=== PATIENT | female | born 1990 | race American Indian/Alaskan Native ===

== ENCOUNTER 2017-03-20 13:39 | Emergency (ER) | payer OTHER ==
[2017-03-20] MEDS ORDERED: Sodium Chloride 0.9% 1,000 ML IV STA (14:21)
[2017-03-20 14:48] LABS: BASO % 0.6 % (0.0-2.0); EOS % 0.4 % (0.0-4.0); HEMOGLOBIN 12.1 g/dL (12.0-16.0); LYMPH # 1.3 K/uL (1.0-4.3); LYMPH % 21.9 % (20.0-40.0); MEAN CELL VOLUME 101.1 fl (81.0-99.0); MEAN CORPUSCULAR HEMOGLOBIN 34.5 pg (27.0-31.0); MEAN CORPUSCULAR HGB CONC 34.1 g/dL (33.0-37.0); MEAN PLATELET VOLUME 8.2 fl (7.2-11.7); MONO # 0.5 K/uL (0.0-0.8); MONO % 9.2 % (0.0-10.0); NEUT % 67.9 % (50.0-75.0); NRBC % 0.1 % (0.0-0.0); RBC 3.51 Mil/uL (3.80-5.20); WHITE BLOOD COUNT 5.9 K/uL (4.8-10.8)
--- NOTE | 2017-03-20 14:49 | ED PDOC ---
HPI: Abdomen Time Seen by Provider: 03/20/17 14:05 Chief Complaint (Nursing): Abdominal Pain Chief Complaint (Provider): Abdominal Pain History Per: Patient History/Exam Limitations: no limitations Onset/Duration Of Symptoms: Other (x 1 month) Quality Of Discomfort: Sharp Additional Complaint(s): Nadine is a 26 year old female, with a past medical history of HIV, who presents to the emergency department with intermittent, sharp abdominal pain for 1 month. Patient reports last week she felt nauseous and vomited x 1, and had diarrhea yesterday. Patient states her job requires her to travel, but her pain is bad. Patient states she has an appointment with her PMD on March 24, but is concern about driving. PMD: Katerin Jaimes Past Medical History Reviewed: Historical Data, Nursing Documentation, Vital Signs Vital Signs: Last Vital Signs Temp 98.4 F 03/20/17 13:44 Pulse 79 03/20/17 13:44 Resp 16 03/20/17 13:44 BP 102/61 03/20/17 13:44 Pulse Ox 97 03/20/17 18:53 - Medical History PMH: HIV - Family History Family History: States: Unknown Family Hx - Home Medications Home Medications: Ambulatory Orders Medication Instructions Recorded Amoxicillin/Clavulanate Pota 1 tab PO BID #10 tab 11/26/14 [Augmentin 875 mg-125 mg] Ibuprofen [Motrin] 600 mg PO Q8 PRN #21 tab 05/08/16 - Allergies Allergies/Adverse Reactions: Allergies Allergy/AdvReac Type Severity Reaction Status Date / Time COCONUT Allergy ANAPHYLAXIS Uncoded 03/20/17 13:44 Review of Systems ROS Statement: Except As Marked, All Systems Reviewed And Found Negative Gastrointestinal: Positive for: Nausea, Vomiting, Abdominal Pain Physical Exam - Reviewed Nursing Documentation Reviewed: Yes Vital Signs Reviewed: Yes - Physical Exam Appears: Positive for: Well, Non-toxic Head Exam: Positive for: NORMAL INSPECTION Skin: Positive for: Normal Color, Warm Eye Exam: Positive for: Normal appearance ENT: Positive for: Normal ENT Inspection Neck: Positive for: Normal Cardiovascular/Chest: Positive for: Regular Rate, Rhythm Respiratory: Positive for: Normal Breath Sounds. Negative for: Accessory Muscle Use, Respiratory Distress Gastrointestinal/Abdominal: Positive for: Normal Exam, Soft. Negative for: Tenderness Extremity: Positive for: Normal ROM. Negative for: Deformity Neurologic/Psych: Positive for: Alert, Oriented (x 3) - Laboratory Results Result Diagrams: 03/20/17 14:41 03/20/17 14:41 Urine POC: Positive - ECG O2 Sat by Pulse Oximetry: 97 (RA) Pulse Ox Interpretation: Normal Medical Decision Making Medical Decision Making: Time: 14:21 Plan: - CT Abdominal and Pelvis without PO pr IV Contrast - CMP - Lipase - CBC - Sodium Chloride 0.9% 1,000 ml IV 1,000 mls/hr 1533 CT cancelled. (+) urine . helpdesk technician, Alex notified. Time: 15:33 Plan: - Beta- hCG Quantitative - Urine Culture - Urinalysis - OB Transvaginal Ultrasound Time: 18:41 OB Transvaginal Ultrasound FINDINGS: Cardiac activity: Present Rate: 163 BPM Measurements: [place] rump length: 5.21 cm Gestational age based on CRL 11 weeks 6 days Gestational age out of range based on gestational sac measurement 6.22 cm Gestational age derived from LMP: Cannot be ascertained based in the absence of a reliable/ known LMP AMY based on LMP: Cannot be ascertained based in the absence of a reliable/ known LMP AMY based on biometry: 10/03/2017 Gestational concordance documented Yolk sac identified Uterus: Unremarkable. No Cervical abnormalities: Negative examination for cervical dilatation or effacement. Closed cervix measuring 5.23 cm Subchorionic hemorrhage: None ADNEXA: Right: 1.2 x 2.2 x 2.1 cm. Normal Doppler arterial waveform documented. Left: 2.4 x 2.5 x 1.7 cm. Normal Doppler arterial waveform documented Fluid in the cul-de-sac: None IMPRESSION: Eleven weeks 6 days live intrauterine gestation. Scribe Attestation: Documented by Hussein Green, acting as a scribe for Leilani Diallo PA-C Provider Scribe Attestation: All medical record entries made by the Scribe were at my direction and personally dictated by me. I have reviewed the chart and agree that the record accurately reflects my personal performance of the history, physical exam, medical decision making, and the department course for this patient. I have also personally directed, reviewed, and agree with the discharge instructions and disposition. Disposition - Clinical Impression Clinical Impression: Abdominal pain during - Patient ED Disposition Is Patient to be Admitted: No Counseled Patient/Family Regarding: Diagnosis, Need For Followup - Disposition Disposition: Routine/Home Disposition Time: 18:59 Condition: GOOD Instructions: Abdominal Pain in (ED) Forms: [employer] - [employer] (South African)
[2017-03-20 14:58] LABS: ALB/GLOB RATIO 1.4 (1.0-2.1); ALBUMIN 4.2 g/dL (3.5-5.0); ALT/SGPT 42 U/L (9-52); AST/SGOT 29 U/L (14-36); BLOOD UREA NITROGEN 6 mg/dl (7-17); CALCIUM 9.5 mg/dL (8.4-10.2); GFR AFRICAN-AMERICAN > 60; GFR NON-AFRICAN AMERICAN > 60; LIPASE 41 U/L (23-300)
[2017-03-20 15:52] LABS: SQUAMOUS EPITHIAL 5 /hpf (0-5); URINE BACTERIA RARE (<OCC); URINE BILIRUBIN NEGATIVE (NEGATIVE); URINE BLOOD NEGATIVE (NEGATIVE); URINE CLARITY CLOUDY (Clear); URINE COLOR YELLOW (YELLOW); URINE GLUCOSE (UA) NEG (Normal); URINE LEUKOCYTE ESTERASE NEG Leu/uL (Negative); URINE NITRATE NEGATIVE (NEGATIVE); URINE PROTEIN NEGATIVE (NEGATIVE); URINE UROBILINOGEN 0.2-1.0 mg/dL (0.2-1.0)
--- NOTE | 2017-03-20 18:43 | US ---
PROCEDURE: First trimester ultrasound HISTORY: abdominal pain, Duration of symptoms: One month COMPARISON: None available. TECHNIQUE: Standard protocol for this study/examination. FINDINGS: LMP: Unknown Prior examinations from the current : None TECHNIQUE: Real-time 2D imaging, duplex and color Doppler. FINDINGS: Cardiac activity: Present Rate: 163 BPM Measurements: [place] rump length: 5.21 cm Gestational age based on CRL 11 weeks 6 days Gestational age out of range based on gestational sac measurement 6.22 cm Gestational age derived from LMP: Cannot be ascertained based in the absence of a reliable/ known LMP AMY based on LMP: Cannot be ascertained based in the absence of a reliable/ known LMP AMY based on biometry: 10/03/2017 Gestational concordance documented Yolk sac identified Uterus: Unremarkable. No Cervical abnormalities: Negative examination for cervical dilatation or effacement. Closed cervix measuring 5.23 cm Subchorionic hemorrhage: None ADNEXA: Right: 1.2 x 2.2 x 2.1 cm. Normal Doppler arterial waveform documented. Left: 2.4 x 2.5 x 1.7 cm. Normal Doppler arterial waveform documented Fluid in the cul-de-sac: None IMPRESSION: Eleven weeks 6 days live intrauterine gestation.
[2017-03-20 19:13] VITALS: BP 104/78; PULSE 70; RESP 18; TEMP 98.2; O2SAT 99
== END 2017-03-20 19:32 | disposition home or self-care (01) ==
LOC: H.ER 13:39
DX: O26.899 Other specified pregnancy related conditions, unspecified trimester (principal); B20 Human immunodeficiency virus [HIV] disease
CPT/HCPCS: 76817; 80053; 81003; 81025; 83690; 84702; 85025; 87086; 99282; J7040

== ENCOUNTER 2017-06-13 01:03 | Emergency (ER) | payer OTHER ==
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
[2017-06-13 12:06] VITALS: BP 113/84; PULSE 72; RESP 16; TEMP 98.3; O2SAT 98
== END 2017-06-13 02:26 | disposition home or self-care (01) ==
LOC: H.ER 01:03
DX: S09.90XA Unspecified injury of head, initial encounter (principal); V43.52XA Car driver injured in collision with other type car in traffic accident, initial encounter; Y92.410 Unspecified street and highway as the place of occurrence of the external cause

== ENCOUNTER 2017-06-19 16:18 | Emergency (ER) | payer OTHER ==
[2017-06-19 16:31] VITALS: BP 104/67; PULSE 95; RESP 16; TEMP 98; O2SAT 98
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
[2017-06-19 18:15] LABS: BASO % 0.3 % (0.0-2.0); EOS % 0.6 % (0.0-4.0); HEMOGLOBIN 13.6 g/dL (12.0-16.0); LYMPH # 2.4 K/uL (1.0-4.3); LYMPH % 38.6 % (20.0-40.0); MEAN CELL VOLUME 100.3 fl (81.0-99.0); MEAN CORPUSCULAR HEMOGLOBIN 33.6 pg (27.0-31.0); MEAN CORPUSCULAR HGB CONC 33.5 g/dL (33.0-37.0); MEAN PLATELET VOLUME 8.4 fl (7.2-11.7); MONO # 0.6 K/uL (0.0-0.8); MONO % 9.6 % (0.0-10.0); NEUT # 3.2 K/uL (1.8-7.0); NEUT % 50.9 % (50.0-75.0); NRBC % 0.1 % (0.0-0.0); RBC 4.03 Mil/uL (3.80-5.20); RED CELL DISTRIBUTION WIDTH 13.5 % (11.5-14.5); WHITE BLOOD COUNT 6.2 K/uL (4.8-10.8)
[2017-06-19 18:27] LABS: BLOOD UREA NITROGEN 12 mg/dl (7-17); GFR AFRICAN-AMERICAN > 60; GFR NON-AFRICAN AMERICAN > 60
--- NOTE | 2017-06-20 14:24 | MRI ---
PROCEDURE: MRI of the brain and pituitary gland dated 06/19/2017. HISTORY: Assess pituitary gland COMPARISON: Comparison made with prior CT scan brain earlier same day. TECHNIQUE: Multiplanar, multisequence MR images of the brain were obtained with and without intravenous contrast enhancement. 7 cc of Omniscan injected for this examination. FINDINGS: HEMORRHAGE: No acute parenchymal, subarachnoid or extra-axial hemorrhage. DWI: No evidence of an acute or early subacute infarction seen on diffusion imaging. . BRAIN PARENCHYMA: There are no focal areas of abnormal signal or contrast enhancement seen within the substance of the brain. Specifically the pituitary gland is normal in appearance. . No evidence of unusual meningeal enhancement. ENHANCEMENT: No abnormal intracranial enhancement as above. VENTRICLES: No obstructive hydrocephalus. CRANIUM: There are no calvarial abnormalities. ORBITS: Orbits and contents unremarkable. PARANASAL SINUSES/MASTOIDS: Clear VASCULAR SYSTEM: Visualized major vascular flow voids at skull base patent. OTHER FINDINGS: None . IMPRESSION: No acute intracranial hemorrhage or infarction. No pituitary abnormalities.
== END 2017-06-19 19:42 | disposition home or self-care (01) ==
LOC: H.ER 16:18
DX: S09.90XA Unspecified injury of head, initial encounter (principal)

== ENCOUNTER 2017-12-30 16:09 | Emergency (ER) | payer OTHER ==
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
[2017-12-30 17:21] VITALS: BP 104/70; PULSE 70; RESP 16; TEMP 98.5; O2SAT 97
[2017-12-30] MEDS ORDERED: Oxycodone/Acetaminophen 5/325 mg Tab PO STA (18:37)
[2017-12-30] MEDS ORDERED: Oxycodone/Acetaminophen 5/325 mg Tab ONE (18:42)
== END 2017-12-30 20:31 | disposition home or self-care (01) ==
LOC: H.ER 16:09
DX: M54.32 Sciatica, left side (principal); G89.29 Other chronic pain

== ENCOUNTER 2018-07-04 05:49 | Emergency (ER) | payer OTHER ==
[2018-07-04 06:07] VITALS: BP 124/64; PULSE 98; RESP 19; TEMP 98.2; O2SAT 98
--- NOTE | 2018-07-04 06:33 | ED PDOC ---
Lower Extremity Pain/Injury Time Seen by Provider: 07/04/18 06:05 Chief Complaint (Nursing): Lower Extremity Problem/Injury Chief Complaint (Provider): Lower Extremity Problem/Injury History Per: Patient History/Exam Limitations: no limitations Onset/Duration Of Symptoms: Hrs (x4) Additional Complaint(s): 27 years old female with PMHx of HIV presents to ER for evaluation of bilateral leg pain that woke her up from sleep at 2 am. Patient reports severe sharp focused pain on bilateral knees radiating to upper and lower legs. She states she has never had this before and reports she does not notice any swelling or rash. Patient denies any accident, back pain, numbness to legs, urinary or fecal incontinence. Patient is compliant with home medications with T-cell count of 1600. PMD: Katerin Jaimes Past Medical History Reviewed: Historical Data, Nursing Documentation, Vital Signs Vital Signs: Last Vital Signs Temp 98.2 F 07/04/18 06:05 Pulse 98 H 07/04/18 06:05 Resp 19 07/04/18 06:05 BP 124/64 07/04/18 06:05 Pulse Ox 98 07/04/18 06:05 - Medical History PMH: Depression, HIV - Surgical History Surgical History: No Surg Hx - Family History Family History: States: Unknown Family Hx - Social History Current smoker - smoking cessation education provided: No Alcohol: None Drugs: Denies - Home Medications Home Medications: Ambulatory Orders Medication Instructions Recorded Amoxicillin/Clavulanate Pota 1 tab PO BID #10 tab 11/26/14 [Augmentin 875 mg-125 mg] Ibuprofen [Motrin] 600 mg PO Q8 PRN #21 tab 05/08/16 Acetaminophen [Acetaminophen Extra 2 tab PO Q6 PRN #10 tablet 06/19/17 Strength] Ondansetron ODT [Zofran ODT] 4 mg PO Q8 PRN #8 odt 06/19/17 Cyclobenzaprine [Cyclobenzaprine 10 mg PO Q8H PRN #12 tab 12/30/17 HCl] Ibuprofen [Motrin Tab] 800 mg PO Q6H PRN #20 tab 12/30/17 oxyCODONE/Acetaminophen [Percocet 1 ea PO Q6H PRN #10 tab 12/30/17 5/325 mg Tab] Naproxen 500 mg PO BID #14 tab 07/04/18 - Allergies Allergies/Adverse Reactions: Allergies Allergy/AdvReac Type Severity Reaction Status Date / Time COCONUT Allergy ANAPHYLAXIS Uncoded 07/04/18 06:07 Review of Systems ROS Statement: Except As Marked, All Systems Reviewed And Found Negative Genitourinary Female: Negative for: Incontinence (urinary or fecal) Musculoskeletal: Positive for: Leg Pain (bilateral starting from the knee radiating to upper and lower legs). Negative for: Back Pain Skin: Negative for: Rash Neurological: Negative for: Numbness (to legs), Other (swelling of legs) Physical Exam - Reviewed Nursing Documentation Reviewed: Yes Vital Signs Reviewed: Yes - Physical Exam Appears: Positive for: No Acute Distress (Tearful, grabbing knees) Head Exam: Positive for: ATRAUMATIC, NORMOCEPHALIC Skin: Positive for: Normal Color, Warm, Dry Eye Exam: Positive for: Normal appearance, EOMI, PERRL Neck: Positive for: Normal, Painless ROM, Supple Cardiovascular/Chest: Positive for: Regular Rate, Rhythm. Negative for: Murmur Respiratory: Positive for: Normal Breath Sounds. Negative for: Respiratory Distress Back: Positive for: Normal Inspection. Negative for: L CVA Tenderness, R CVA Tenderness, Other (tenderness to spine) Extremity: Positive for: Normal ROM. Negative for: Calf Tenderness, Swelling Neurological/Psych: Positive for: Awake, Alert, Symmetric/Intact Strength, Oriented (x3), Other (Full sensation) - Laboratory Results Result Diagrams: 07/04/18 06:35 07/04/18 06:35 - ECG O2 Sat by Pulse Oximetry: 98 (RA) Pulse Ox Interpretation: Normal Medical Decision Making Medical Decision Making: Time: 624 MDM: Severe leg pain starting at the knees without trauma --No swelling of legs, unclear cause of pain --Patient searched on [employer] prescription monitoring program that does not show anything --Patient has been here before for other complaints --Basic labs --D-Dimer to rule out DVT --Toradol for pain --Reassess patient. Scribe Attestation: Documented by Sonia Luna, acting as a scribe for Leida Saldivar MD. Provider Scribe Attestation: All medical record entries made by the Scribe were at my direction and personally dictated by me. I have reviewed the chart and agree that the record accurately reflects my personal performance of the history, physical exam, medical decision making, and the department course for this patient. I have also personally directed, reviewed, and agree with the discharge instructions and disposition. Disposition - Clinical Impression Clinical Impression: Knee pain - Disposition Disposition: Transfer of Care Disposition Time: 07:00 (Signed out to Dr. Sanchez pending labs and imaging.) Condition: STABLE Additional Instructions: Follow up with primary medical doctor. Take Naproxen twice per day as needed for pain. Prescriptions: Naproxen 500 mg PO BID #14 tab Instructions: Knee Pain (DC) Forms: [employer] (Sinhala) Print Language: ROMANIAN
[2018-07-04 06:49] LABS: BASO % 0.2 % (0.0-2.0); EOS % 0.1 % (0.0-4.0); HEMOGLOBIN 12.8 g/dL (12.0-16.0); LYMPH # 2.5 K/uL (1.0-4.3); LYMPH % 13.9 % (20.0-40.0); MEAN CELL VOLUME 99.4 fl (81.0-99.0); MEAN CORPUSCULAR HEMOGLOBIN 32.9 pg (27.0-31.0); MEAN CORPUSCULAR HGB CONC 33.1 g/dL (33.0-37.0); MEAN PLATELET VOLUME 7.9 fl (7.2-11.7); MONO # 1.1 K/uL (0.0-0.8); MONO % 6.1 % (0.0-10.0); NEUT # 14.3 K/uL (1.8-7.0); NEUT % 79.7 % (50.0-75.0); NRBC % 0.2 % (0.0-0.0); RBC 3.89 Mil/uL (3.80-5.20); WHITE BLOOD COUNT 17.9 K/uL (4.8-10.8)
[2018-07-04 06:55] LABS: BLOOD UREA NITROGEN 18 mg/dl (7-17); CALCIUM 9.5 mg/dL (8.4-10.2); GFR NON-AFRICAN AMERICAN > 60
== END 2018-07-04 08:00 | disposition home or self-care (01) ==
LOC: H.ER 05:49
DX: M25.562 Pain in left knee (principal); M25.561 Pain in right knee; Z86.59 Personal history of other mental and behavioral disorders
CPT/HCPCS: 80048; 81025; 85025; 85378; 96374; 99284; J1885